=== PATIENT | female | born 1970 | race Two or more races ===

== ENCOUNTER 2017-10-26 20:18 | Emergency (ER) | payer BC ==
[~2017-10-26] VITALS: Ht 177.8 cm; Wt 131.4 kg
[~2017-10-26 20:18] MED LIST: MOTRIN600 MG PO; NORCO 5/3251 TABLET PO
[2017-10-26 21:34] LABS: HEMATOCRIT 37.2 % (36.0-46.0); HEMOGLOBIN 12.8 G/DL (11.9-15.5); MCH 30.3 PG (29.0-34.0); MCHC 34.4 G/DL (30.0-36.0); MCV 88.2 FL (83-99); PLATELET COUNT 250 K/uL (156-360); RBC DIS.WIDTH-CV 12.8 % (11.8-14.6); RBC DIS.WIDTH-SD 41.3 % (39-53); RED BLOOD COUNT 4.22 M/uL (3.80-5.20); WHITE BLOOD COUNT 5.5 K/uL (4.1-10.2)
[2017-10-26 21:54] LABS: TROP-I INTERPRETATION NEGATIVE; TROPONIN-I < 0.01 ng/mL (0.0-0.30)
[2017-10-26 21:57] LABS: CHLORIDE 108 mEq/L (99-109); POTASSIUM 3.6 mEq/L (3.7-5.4); SODIUM 137 mEq/L (136-147)
[2017-10-26 21:58] LABS: MAGNESIUM 2.4 mg/dL (1.3-2.7)
[2017-10-26 21:59] LABS: GLUCOSE 162 mg/dL (70-99)
[2017-10-26 22:03] LABS: CREATININE 0.8 mg/dL (0.6-1.3); GFR ESTIMATE (CALCULATED) > 59 mL/min/
[2017-10-26 22:04] LABS: UREA NITROGEN (BUN) 10 mg/dL (9-23)
[2017-10-26 22:41] VITALS: BP 131/71
[2017-10-27 08:43] LABS: THYROTROPIN (TSH) 2.9 MIU/L (0.4-5.5)
== END 2017-10-26 22:42 | disposition home or self-care (01) ==
LOC: EME 20:18
DX: I49.3 Ventricular premature depolarization (principal); R00.2 Palpitations
CPT/HCPCS: 71046; 80048; 83735; 84443; 84484; 85027; 93005; 99281; 99284